=== PATIENT | male | born 1950 | race Caucasian/White ===

== ENCOUNTER 2025-07-30 12:49 | Outpatient (REF) | payer MEDICARE, SELFPAY ==
[2025-07-30 14:32] LABS: Uric Acid 8.5 mg/dL (3.4-7.0)
--- OUTSIDE RECORDS SUMMARY | 2025-07-30 14:54 | XMS_ITS | Clinical Summary ---
Author Organization [address] [facility] Address [address] [place] [address] Phone Care Team Providers Care Brewery Technician Name Role Phone Unavailable Primary Care Provider Unavailabl e Surgical History Surgery Date Site/Laterality Comments OTHER SURGICAL HISTORY 1991 PROCEDURE: KS CLTX FX W8 BRG ARTCLR PRTN DSTL TIBIA W/O MANJ; COMMENT: sean in left tibis TONSILLECTOMY PROCEDURE: HISTORICAL TONSILLECTOMY NOSE SURGERY PROCEDURE: KS UNLISTED PROCEDURE NOSE; COMMENT: DEVIATED SEPTUM OTHER SURGICAL HISTORY 2009 PROCEDURE: KS BIOPSY LIVER NEEDLE PERCUTANEOUS; COMMENT: increased echogenecity COLONOSCOPY 05/06/15 PROCEDURE: HISTORICAL COLONOSCOPY; COMMENT: adenoma, tics and hemorrhoids; repeat in 5 yrs SHOULDER ARTHROSCOPY 05/29/2018 Right PROCEDURE: KS SURGICAL ARTHROSCOPY SHOULDER W/LSS&RESCJ ADS Medical History Medical History Date Comments Essential hypertension, benign 12/16/2006 D X:Essential hypertension, benign Closed fracture of unspecifi ed part of tibia 1991 DX:Closed fracture of unspec ified part of tibia; COMMENT: Fall off of horse - left Cirrhosis (CMS/HCC V24, CMS/HCC V28) 12/07/2012 DX:Cirrhosis (HCC) Historical Medical DX 07/25/2009 DX:Elevate d liver function tests; COMMENT: Liver biopsy 06/09/10: Cirrhosis, steatohepatitis (grade 3/3, stage 4/4). Iron index 0.13(nl) Arthritis 2014 DX:Arthritis; CO MMENT: R shoulder Family History Medical History Relation Name Comments COPD Mother Relation Name Status Comments Brother Alive heart problems - defibrillator, afib Daughter Alive 2 healthy Father (Age 83) dementia, CVA in 60s Maternal Grandfather Alcohol Maternal Grandmother 70s wit h multiple problems Mother (Age 80) copd - smo ker - 02 Paternal Grandfather Lung ca ncer - smoker Paternal Grandmother child b irth Sister Alive healthy smoker Son Alive 1 healthy Social History Tobacco Use Types Packs/Day Years Used Date Smoking Tobacco: Former Cigarettes 1 Q uit: 09/20/1989 Smokeless Tobacco: Former Quit: 09/20/1989 Alcohol Use Standard Drinks/Week Comments Yes 0 (1 standard drink = 0.6 oz pur e alcohol) Sex and Gender Information Value Date Recorded Sex Assigned at Not on file Legal Sex Male 1:38 PM EST Gender Identity Not on file Sexual Orientation Not on file Obstetrics History Plan of Treatment Health Maintenance Due Date Last Done Comments Colorectal Cancer Screening: Colonoscopy 1950 RSV Immunization Adult Patients (1 - Risk 50-74 years 1-dose series) 2001 Zoster Vaccines (1 of 2) 2001 Pneumococcal Vaccine: 50+ Years (3 of 3 - PCV20 or PCV21) 01/16/2020 01/15/2015, 01/15/2015 Depression Screening 09/20/2024 Abdominal Aortic Aneurysm (AAA) Screen 09/21/2024 Cholesterol Screening (Lipid Panel) 09/21/2024 Falls Risk Assessment 09/21/2024 Hepatitis C Screening 09/21/2024 Hypertension/CHF/CAD Annual BMP Blood Test 09/21/2024 Social Influencers of Health Screening 09/21/2024 DTaP,Tdap,and Td Vaccines (4 - Td or Tdap) 01/15/2025 01/15/2015, 01/15/2015, 01/29/2009 COVID-19 Vaccine (4 - 2024-2 6 season) 2025 09/15/2021, 12/20/2020, 11/22/2020 Influenza Vaccine (#1) 2025 Hepatitis A Vaccines Completed 11/17/2010, 06/16/2010, 05/13/2010 Hepatitis B Vaccines Completed 11/17/2010, 06/16/2010, 05/13/2010 HIB Vaccines Aged Out No longer eligi ble based on patient's age to complete this topic HPV Vaccines Aged Out No longer eligi ble based on patient's age to complete this topic IPV Vaccines Aged Out No longer eligi ble based on patient's age to complete this topic MMR Vaccines Aged Out No longer eligi ble based on patient's age to complete this topic Meningococcal ACWY Vaccine Aged Out N o longer eligible based on patient's age to complete this topic Meningococcal B Vaccine Aged Out No l onger eligible based on patient's age to complete this topic RSV Immunization Patients Under 20 months Aged Out No longer eligible b ased on patient's age to complete this topic Varicella Vaccines Aged Out No longer eligible based on patient's age to complete this topic Insurance [facility]
--- OUTSIDE RECORDS SUMMARY | 2025-07-30 14:54 | XMS_ITS | Encounter Summary ---
Author Organization [facility] Address [address] [place] [phone] Phone Care Team Providers Care Communication Analyst Name Role Phone Unknown, Unknown Primary Care Provider Shu mujica Reason for Referral * Physical Therapy (Routine) - Closed Specialty Diagnoses / Procedures Referred By [employer]akota t Referred To Contact Physical Therapy Diagnoses Encounter for rehabilitation System, Provider Not In, [facility] [id number] [place] [address] Phone: tel: Referral ID Status Reason Start Date Expiration Date Visits Re quested Visits Authorized [id number] Closed 09/20/2017 09/19/2018 25 25 Encounter Details Date Type Department Care Team (Late st Contact Info) Description 10/01/2017 Transcribe Orders [facility] [address] [place] [id number] Kaykay Bean PA [address] [place] [phone] Encounter for rehabilitation (Primary Dx) Social History Tobacco Use Types Packs/Day Years Used Date Smoking Tobacco: Never Assessed Sex and Gender Information Value Date Recorded Sex Assigned at Not on file Legal Sex Male 3:17 PM EST Gender Identity Not on file Sexual Orientation Not on file documented as of this encounter Plan of Treatment Scheduled Referrals Name Type Priority Associated Diagnoses Orde r Schedule Ambulatory referral to [facility] Physical Therapy Outpatient Referral Routine Encounter for rehabilitation Ordered: 10/01/2017 documented as of this encounter Visit Diagnoses Diagnosis Encounter for rehabilitation- Primary documented in this encounter Care Teams Communication Analyst Relationship Specialty Start Date End Date Unknown, Unknown, PCP - General 10/01/17 documented as of this encounter Additional Source Comments The information contained in this document represents components of the legal health record. It is not the complete legal health record.[facility]
--- OUTSIDE RECORDS SUMMARY | 2025-07-30 14:54 | XMS_ITS | Encounter Summary ---
Author Organization [facility] Address [address] [place] [address] Care Team Providers Care Manager Compensation Name Role Phone Unavailable Primary Care Provider Unavailabl e Encounter Details Date Type Department Care Team (Late st Contact Info) Description 09/21/2024 Lab Requisition [facility] - Main Lab [address] [place] [address] Jemal Mendez MD [address] [place], [place] [id number] Elevated prostate specific antigen (PSA) Social History Tobacco Use Types Packs/Day Years [...] as of this encounter Plan of Treatment Not on file documented as of this encounter Procedures Procedure Name Priority Date/Time Associated Diagnosis Comments AP OUTSIDE CONSULT Routine 09/19/2024 Elevated prostate specific antigen (PSA) documented in this encounter Results * Anatomic pathology outside consult (09/19/2024) Final Diagnosis A. Prostate, Left Middle Patriot (Core Biopsy): - Benign prostate tissue. B. Prostate, Left Lateral Patriot (Core Biopsy): - Benign prostate tissue. C. Prostate, Left Middle Middle (Core Biopsy): - Benign prostate tissue. D. Prostate, Left Lateral Middle (Core Biopsy): - Benign prostate tissue. E. Prostate, Left Middle Base (Core Biopsy): - Benign prostate tissue. F. 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 - Tumor continuously involves <5% of 1 of 1 tissue core. G. 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 - Tumor continuously involves 5% of 1 of 1 tissue core. H. 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 - Tumor continuously involves 80% of 1 of 1 tissue core. - High grade prostatic intraepithelial neoplasia (HGPIN). PIN4 immunohistology supports the morphological diagnosis. I. 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 - Tumor continuously involves 10% of 1 of 1 tissue core. J. Prostate, Right Lateral Middle (Core Biopsy): - Prostatic acinar adenocarcinoma, grade group 1, Taniya score (3+3=6). - Tumor continuously involves 80% of 1 of 1 tissue core. PIN4 immunohistology supports the morphological diagnosis. K. Prostate, Right Middle Base (Core Biopsy): - Prostatic acinar adenocarcinoma, grade group 1, Taniya score (3+3=6). - Tumor continuously involves 10% of 1 of 1 tissue core. L. Prostate, Right Lateral Base (Core Biopsy): - Prostatic acinar adenocarcinoma, grade group 2, Taniya score (3+4=7). - Percentage pattern 4: 10%. - Tumor continuously involves 90% of 1 of 1 tissue core. PIN4 immunohistology supports the morphological diagnosis. 09/28/2024 11:44 AM [facility] Comment H, J, L: PIN4 performed at [facility] lab, [address], [place] [address], CLIA # [id number] 09/28/2024 11:44 AM [facility] Clinical Information Elevated PSA R97.20 PSA: 10.00 (07/14/24) [id number] 09/28/2024 11:44 AM [facility] Gross Description A. Prostate, Left Middle Patriot Biopsy: Received, properly labeled, are two H and E stained slides and two unstained slides. B. Prostate, Left Lateral Patriot Biopsy: Received, properly labeled, are two H and E stained slides and two unstained slides. C. Prostate, Left Middle Middle Biopsy: Received, properly labeled, are two H and E stained slides and two unstained slides. D. Prostate, Left Lateral Middle Biopsy: Received, properly labeled, are two H and E stained slides and two unstained slides. E. Prostate, Left Middle Base Biopsy: Received, properly labeled, are two H and E stained slides and two unstained slides. F. Prostate, Left Lateral Base Biopsy: Received, properly labeled, are two H and E stained slides and two unstained slides. G. Prostate, Right Middle Patriot Biopsy: Received, properly labeled, are two H and E stained slides and two unstained slides. H. Prostate, Right Lateral Patriot Biopsy: Received, properly labeled, are two H and E stained slides and two unstained slides. I. Prostate, Right Middle Middle Biopsy: Received, properly labeled, are two H and E stained slides and two unstained slides. J. Prostate, Right Lateral Middle Biopsy: Received, properly labeled, are two H and E stained slides and two unstained slides. K. Prostate, Right Middle Base Biopsy: Received, properly labeled, are two H and E stained slides and two unstained slides. L. Prostate, Right Lateral Base Biopsy: Received, properly labeled, are two H and E stained slides and two unstained slides. /al 09/28/2024 11:44 AM [facility] Disclaimer Unless otherwise specified, all tissue is 10% NB formalin fixed and paraffin embedded. Technical pathology services provided by [facility] at [address] [place] [address] [address], [place] [address] (CLIA #[id number]/Flavia Gandhi MD, Job Lithographer) 09/28/2024 11:44 AM [facility] Tissue Prostate / Unknown 09/19/20242024 9:55 AM EST Tissue specimen (specimen) Prostate / Unknown 09/19/2024 09/21/2024 9: 58 AM EST Tissue specimen (specimen) Prostate / Unknown 09/19/2024 09/21/2024 9: 58 AM EST Tissue specimen (specimen) Prostate / Unknown 09/19/2024 09/21/2024 9: 58 AM EST Tissue specimen (specimen) Prostate / Unknown 09/19/2024 09/21/2024 9: 58 AM EST Tissue specimen (specimen) Prostate / Unknown 09/19/2024 09/21/2024 9: 58 AM EST Tissue specimen (specimen) Prostate / Unknown 09/19/2024 09/21/2024 9: 58 AM EST Tissue specimen (specimen) Prostate / Unknown 09/19/2024 09/21/2024 9: 58 AM EST Tissue specimen (specimen) Prostate / Unknown 09/19/2024 09/21/2024 9: 58 AM EST Tissue specimen (specimen) Prostate / Unknown 09/19/2024 09/21/2024 9: 58 AM EST Tissue specimen (specimen) Prostate / Unknown 09/19/2024 09/21/2024 9: 58 AM EST Tissue specimen (specimen) Prostate / Unknown 09/19/2024 09/21/2024 9: 58 AM EST us Jemal Mendez MD LAB PATHOLOGY ORDERABLES Fi nal Result [facility] ([facility]) [facility] [address] [place] [address], documented in this encounter Visit Diagnoses Diagnosis Elevated prostate specific antigen (PSA) documented in this encounter
--- OUTSIDE RECORDS SUMMARY | 2025-07-30 14:54 | XMS_ITS | Clinical Summary ---
Author Organization [facility] Address [address] [place] [address] [place] [phone] Phone Care Team Providers Care Sound Assistant Name Role Phone Unknown, Unknown Primary Care Provider Shu mujica Social History Tobacco Use Types Packs/Day Years Used Date Smoking Tobacco: Never Assessed Education Answer Date Recorded Are you interested in more education? Not on john e 01/15/2023 Are you concerned about learning? Not on file 01/15/2023 No 01/15/2023 No 01/15/2023 Digital Access Answer Date Recorded No 02/13/2023 No 02/13/2023 No 02/13/2023 Reliable internet access at home? Not on file 02/13/2023 Device with a working camera? Not on file Sex and Gender Information Value Date Recorded Sex Assigned at Not on file Legal Sex Male 3:17 PM EST Gender Identity Not on file Sexual Orientation Not on file Plan of Treatment Health Maintenance Due Date Last Done Comments LIPID PANEL 1950 DEPRESSION SCREENING 1963 SMOKING Hx and SMOKELESS TOBACCO SCREENING 01/12/1964 HEPATITIS C SCREENING 1969 COLOGUARD 01/12/1996 COLONOSCOPY 01/12/1996 COLORECTAL CANCER SCREENING 01/12/1996 FIT TEST 01/12/1996 FOBT 01/12/1996 SIGMOIDOSCOPY 01/12/1996 VIRTUAL COLONOSCOPY 01/12/1996 ZOSTER VACCINES (1 of 2) 2001 PNEUMOCOCCAL VACCINES (50+ years) (3 of 3 - PCV20 or PCV21) 01/16/2020 01/15/2015, 01/15/2015 Adult Td,Tdap Booster 01/15/2025 01/15/2015 , 01/29/2009 INFLUENZA VACCINE (#1) 2025 COVID-19 VACCINE (2 - 2024-2 6 season) 2025 11/22/2020 RSV VACCINE (1 - 1-dose 75+ series) 2026 HEPATITIS A VACCINES Aged Out 11/17/2010, 06/16/2010, 05/13/2010 No longer eligible based on patient's age to complete this topic HIB VACCINES Aged Out No longer eligi ble based on patient's age to complete this topic MENINGOCOCCAL VACCINES (ACWY) Aged Out No longer eligible based on patient's age to complete this topic MENINGOCOCCAL VACCINES (B) Aged Out N o longer eligible based on patient's age to complete this topic Medical Devices Not on file Insurance [place] BLUE REPLACEMENT [facility] MEDICARE PPO BLUE REPLACEMENT [facility] MEDICARE PPO BLUE REPLACEMENT [facility] MEDICARE PPO BLUE REPLACEMENT [facility] MEDICARE PPO BLUE REPLACEMENT [facility] MEDICARE PPO BLUE REPLACEMENT Member Subscriber Plan / Payer (Ef fective 2015-Present) Name:Sergio Diaz Relation to Subscriber:Self Name:Sergio Diaz Payer ID:[id number] (NAIC) Type:Medicare Address: [facility] [id number] [place] [phone] Care Teams Sound Assistant Relationship Specialty Start Date End Date Unknown, Unknown, PCP - General 10/01/17 Additional Source Comments The information contained in this document represents components of the legal health record. It is not the complete legal health record.[facility]
== END 2025-07-30 12:50 | disposition home or self-care (01) ==
LOC: HO.LAB 12:49
PROVIDERS: PCP Nurse Practitioner Family; Visit Provider Nurse Practitioner Family
DX: M10.9 Gout, unspecified (principal)
CPT/HCPCS: 36415; 84550